=== PATIENT | female | born 1960 | race Caucasian/White ===

== ENCOUNTER 2022-04-25 15:27 | Emergency (ER) | payer MEDICAID ==
[2022-04-25] MEDS: Sodium Chloride 0.9% 1,000 ML IV ONE ×2 (16:01→17:00)
[2022-04-25] MEDS: Ondansetron 4 MG/2 ML SDV IVPUSH ONE (16:02)
[2022-04-25 16:16] LABS: ANION GAP 11.8 meq/L (7-15); CHLORIDE,CL 99 mmol/L (98-107); SODIUM,NA 136 mmol/L (136-145)
[2022-04-25 16:20] LABS: ESTIMATED GFR 39 mL/min (>=60)
[2022-04-25] MEDS: Diltiazem 25 MG/5 ML SDV IVPUSH ONE (16:34)
[2022-04-25 16:56] LABS: CORONAVIRUS COVID-19 NAA NEGATIVE (NEGATIVE); RESPIRATORY SYNCYTIAL VIR NAA NEGATIVE (NEGATIVE)
[2022-04-25] MEDS: Sodium Chloride 0.9% 1,000 ML IV SCH (18:37)
[2022-04-25] MEDS: Iopamidol 612 MG/ML 100 ML Bottle IVPUSH STA (18:51)
[2022-04-25] MEDS: Magnesium Sulfate/D5W 1 GM/100 ML BAG IV ONE (20:13)
[2022-04-25] MEDS: Sodium Chloride 0.9% 10 ML Syringe FLUSH PRN (20:15)
[2022-04-25 20:24] LABS: ANION GAP 9.8 meq/L (7-15); CHLORIDE,CL 102 mmol/L (98-107); ESTIMATED GFR 45 mL/min (>=60); SODIUM,NA 136 mmol/L (136-145)
[2022-04-25] MEDS: Diltiazem IR 60 MG Tab PO ONE (21:03)
[2022-04-25 22:20] LABS: BARBITURATE SCREEN,URINE NEGATIVE (NEGATIVE); BENZODIAZEPINES SCREEN,URINE NEGATIVE (NEGATIVE); EDDP,URINE SCREEN NEGATIVE (NEGATIVE); TCA SCREEN,URINE NEGATIVE (NEGATIVE); THC SCREEN,URINE 50 NG/ML NEGATIVE (NEGATIVE)
[2022-04-25 22:32] LABS: BUPRENORPHINE SCREEN,URINE NEGATIVE (NEGATIVE)
== END 2022-04-25 23:00 ==
LOC: LL.ED 15:27 → SUPCPDRO 15:27 → LL.ED 23:00
DX: I48.91 Unspecified atrial fibrillation (principal); E83.42 Hypomagnesemia; R74.02 Elevation of levels of lactic acid dehydrogenase [LDH]; R41.0 Disorientation, unspecified; I25.10 Atherosclerotic heart disease of native coronary artery without angina pectoris; J44.9 Chronic obstructive pulmonary disease, unspecified; E78.00 Pure hypercholesterolemia, unspecified; E11.9 Type 2 diabetes mellitus without complications; E66.9 Obesity, unspecified; Z68.41 Body mass index [BMI] 40.0-44.9, adult; Z91.030 Bee allergy status; Z88.1 Allergy status to other antibiotic agents; Z88.5 Allergy status to narcotic agent; Z79.899 Other long term (current) drug therapy; Z79.01 Long term (current) use of anticoagulants; Z20.822 Contact with and (suspected) exposure to COVID-19
CPT/HCPCS: 0241U; 36415; 70450; 71045; 74177; 80048; 80053; 80162; 80305-QW; 81001; 82150; 83605; 83690; 83735; 83880; 84443; 84484; 85025; 85379; 85610; 87040; 96361; 96365; 96366; 96374; 96375; 99284; 99285-25; J2405; J3475; J3490; J7030; Q9967